=== PATIENT | male | born 1975 | race Caucasian/White ===

== ENCOUNTER 2019-10-26 10:12 | Emergency (ER) | payer SELFPAY ==
[2019-10-26 10:12] VITALS: BP 159/110; PULSE 82; RESP 20; TEMP 36.9; O2SAT 92; BMI 45.6
--- NOTE | 2019-10-26 10:16 | CT_ITS ---
WS: [id number] CT ABDOMEN PELVIS TECHNIQUE: Noncontrast CT of the abdomen and pelvis with coronal and sagittal reformatted images. CLINICAL INFORMATION: flank pain COMPARISON: None. DLP: 2238.[address] scans at [facility] use at least one of these dose optimization techniques: automat ed exposure control; mA and/or kV adjustment per patient size (includes targeted exams where dose is matched to clinical indication); or iterative reconstruction. FINDINGS: Noncontrast liver is normal. Normal cholecystectomy clips. Noncontrast spleen is normal. Mild fatty a trophy of the pancreas. Normal GE junction. Slight atelectasis in the lung bases. Adrenal glands are normal. No hydronephrosis. No obstructing renal or ureteral calculi. Normal caliber abdominal aorta. Mild aortic calcification. Normal sigmoid colon. Normal appendix. No evidence of small or large bowel obstruction. No free fluid in the pelvis. Disc space narrowing worse L5-S1. CT/CT kidney stone 12680 IMPRESSION: 1. No obstructing renal or ureteral calculi. No hydronephrosis. 2. Prior cholecystectomy. 3. No evidence of small or large bowel obstruction. Normal sigmoid colon. 4. No free fluid in the pelvis. 5. No acute abdominal or pelvic findings.
--- NOTE | 2019-10-26 10:17 | ED_ITS ---
HPI - Abdominal Pain General: Chief Complaint: Urogenital-Male Stated Complaint: flank pain Time Seen by Provider: 10/26/19 10:16 Source: patient Mode of arrival: ambulatory Limitations: no limitations History of Present Illness: HPI narrative: Patient comes in for persistent flank pain to the left side. Patient was diagnosed with a kidney stone yesterday at [facility] emergency room. Patient was prescribed medications but had not picked them up and the pain got worse today. Patient appears in moderate pain. Patient appears well. MD elicited complaint: flank pain Review of Systems General: Reports: 10 or more systems reviewed and unremarkable except in HPI and below GI: Reports: abdominal pain (flank pain) PFSH ED 2 PFSH: Social History Smoking and tobacco status: current every day smoker Physical Exam Const: COMMON NORMALS: no apparent distress and oriented x3 GENERAL APPEARANCE: cooperative HENMT: COMMON NORMALS: normocephalic, TM's normal bilaterally and external nose normal HEAD & SCALP: normal to inspection and normocephalic NOSE: external nose normal TYMPANIC MEMBRANE: TM's normal bilaterally MOUTH: oral and palatal mucosa normal THROAT: posterior oropharynx normal Eye: GENERAL EYE: normal appearance of both eyes Neck/C-Spine: COMMON NORMALS: full ROM Lymph: LYMPHATIC: no lymphadenopathy noted Chest: COMMONS NORMALS: inspection of chest normal Resp: COMMON NORMALS: normal respiratory effort EFFORT & INSPECTION: Yes able to speak in complete sentences Cardio: COMMON NORMALS: regular rate and regular rhythm RATE: regular rate RHYTHM: regular rhythm GI: COMMON NORMALS: non-tender : BLADDER/KIDNEY EXAM: Yes CVA tenderness Back/Pelvis: COMMON NORMALS: thoracic and lumbar spine normal to inspection GENERAL BACK: Yes CVA tenderness Extremity: COMMON NORMALS: normal to inspection Neuro: COMMON NORMALS: oriented x3 and moves all extremities Psych: COMMON NORMALS: mental status grossly normal and cooperative Skin: COMMON NORMALS: no rashes or lesions noted GENERAL SKIN EXAM: no ra shes or lesions noted Course Vital Signs: Vital signs: Vital Signs Temperature 98.4 F 10/26/19 10:12 Pulse Rate 70 10/26/19 12:24 Respiratory Rate 20 H 10/26/19 10:12 Blood Pressure 141/73 10/26/19 12:24 Pulse Oximetry 95 10/26/19 12:24 MDM - Abdominal Pain MDM Narrative: Medical decision making narrative: Patient comes in with left f lank pain radiating into his abdomen. Exam patient has some flank tenderness on percussion on the left side. Vital signs are normal except for some mild elevation in blood pressure. Differential diagnosis includes lumbar strain, renal colic, pyelonephritis. CT scan of the abdomen pelvis noted no hydronephrosis or obstructing renal calculi. Urinalysis showed jose blood and trace his white blood cells. Laboratory values were normal. Suspect patient probably had a renal stone that he passed. Patient at first had significant pain but it did improve prior to discharge. Recommended patient continue with medications as directed and follow-up with urology for further evaluation and treatment. Encourage plenty of fluids and return to the ER for high fever or worsening symptoms. Patient reported understanding. Lab Data: Labs: Lab Results 10/26/19 10/26/19 10/26/19 Range/Units 11:29 11:29 11:29 WBC 7.0 (4.0-10.0) 10^3/ uL RBC 5.13 (4.1-5.3) 10^6/u L Hgb 16.6 (11.7-16.6) g/dL Hct 50.0 (42.0-52.0) % MCV 97.5 H (80-94) fL MCH 32.4 (28.0-34.0) pg MCHC 33.2 (30.0-36.0) g/dL RDW 12.3 (12.1-15.1) % Plt Count 220 (130-400) 10^3/c mm MPV 9.9 (7.4-10.4) fL Neut % (Auto) 68.0 % Lymph % (Auto) 23.9 % Duchesne % (Auto) 5.1 % Eos % (Auto) 2.0 % Baso % (Auto) 0.7 % Neut # (Auto) 4.8 (1.8-7.7) 10^3/u L Lymph # (Auto) 1.7 (0.8-4.8) 10^3/u L Duchesne # (Auto) 0.4 (0.2-0.9) 10^3/u L Eos # (Auto) 0.1 (0.0-0.8) 10^3/u L Baso # (Auto) 0.1 (0.0-0.1) 10^3/u L Nucleated RBC % (a uto) 0 % Nucleated RBCs # 0.0 /100WBC D-Dimer (0-0.59) ug/mIFE U Sodium 139 (136-145) mmol/L Potassium 4.4 (3.5-5.1) mmol/L Chloride 101 (98-107) mmol/L Carbon Dioxide 28 (22-29) mmol/L Anion Gap 14.4 (5-19) BUN 12 (6-20) mg/dL Creatinine 1.0 (0.7-1.2) mg/dL GFR Calculation 81.2 L (90-130) mL/min Glucose 91 (65-115) mg/dL Calculated Osmolal ity 284 L (285-295) mOsm/k g Calcium 9.9 (8.5-10.5) mg/dL Lipase 24 (13-60) U/L Urine Color (Yellow) Urine Appearance (CLEAR) Urine pH (5-7) Ur Specific Gravit y (1.005-1.030) Urine Protein (Negative) Urine Glucose (UA) (Normal) Urine Ketones (Negative) Urine Blood (Negative) Urine Nitrate (Negative) Urine Bilirubin (NEGATIVE) Urine Urobilinogen (Negative) mg/dL Ur Leukocyte Estefani ase (Negative) Urine RBC (0-2) /hpf Urine WBC (0-5) /hpf Ur Squamous Epith Cells (0-5) Urine Bacteria (NONE) 10/26/19 10/26/19 Range/Units 11:29 12:22 WBC (4.0-10.0) 10^3/ uL RBC (4.1-5.3) 10^6/u L Hgb (11.7-16.6) g/dL Hct (42.0-52.0) % MCV (80-94) fL MCH (28.0-34.0) pg MCHC (30.0-36.0) g/dL RDW (12.1-15.1) % Plt Count (130-400) 10^3/c mm MPV (7.4-10.4) fL Neut % (Auto) % Lymph % (Auto) % Duchesne % (Auto) % Eos % (Auto) % Baso % (Auto) % Neut # (Auto) (1.8-7.7) 10^3/u L Lymph # (Auto) (0.8-4.8) 10^3/u L Duchesne # (Auto) (0.2-0.9) 10^3/u L Eos # (Auto) (0.0-0.8) 10^3/u L Baso # (Auto) (0.0-0.1) 10^3/u L Nucleated RBC % (a uto) % Nucleated RBCs # /100WBC D-Dimer 0.37 (0-0.59) ug/mIFE U Sodium (136-145) mmol/L Potassium (3.5-5.1) mmol/L Chloride (98-107) mmol/L Carbon Dioxide (22-29) mmol/L Anion Gap (5-19) BUN (6-20) mg/dL Creatinine (0.7-1.2) mg/dL GFR Calculation (90-130) mL/min Glucose (65-115) mg/dL Calculated Osmolal ity (285-295) mOsm/k g Calcium (8.5-10.5) mg/dL Lipase (13-60) U/L Urine Color Toma (Yellow) Urine Appearance Clear (CLEAR) Urine pH 5 (5-7) Ur Specific Gravit y 1.025 (1.005-1.030) Urine Protein 1+ H (Negative) Urine Glucose (UA) Norm (Normal) Urine Ketones 1+ H (Negative) Urine Blood 3+ H (Negative) Urine Nitrate Negative (Negative) Urine Bilirubin Neg (NEGATIVE) Urine Urobilinogen Norm (Negative) mg/dL Ur Leukocyte Estefani ase Negative (Negative) Urine RBC 15-25 H (0-2) /hpf Urine WBC 0-4 H (0-5) /hpf Ur Squamous Epith Cells 5-10 H (0-5) Urine Bacteria 2+ H (NONE) Discharge Plan Discharge Patient Disposition: Home, Self-Care Clinical Impression: Renal colic on left side Condition: Stable Prescriptions: New hydrocodone-acetaminophen 5-325 mg tablet 1 tab PO Q6H PRN (Reason: pain (scale score 7-10)) Qty: 10 RF: 0 Bactrim DS 800-160 mg tablet 1 tab PO BID 10 Days Qty: 20 RF: 0 Discharge Orders: Discharge Order (Routine); Ordered 10/26/19 Ordered By: Garrett J Mahajan Discharge Diet: Usual diet Discharge Activity: Increase activity as tolerated Patient Instructions: Renal Colic (ED) Activity Restrictions/Additional Instructions: Drink plenty of water. Take medications with 1 whole glass of water. Eat as tolerated. Follow-up with primary care in 1 week. Return to the ER for high fever or worsening symptoms. Coding Level of Care Code ED Plant [employer] for Kimmie Fwtoño Exam Comprehensive
[2019-10-26 10:26] VITALS: O2SAT 95
[2019-10-26] MEDS: ketorolac 30 mg/mL INJ 15 MG IVP (10:59)
[2019-10-26] MEDS: morphine 4 mg/mL SDV 1 mL IVP (11:00)
[2019-10-26] MEDS: ondansetron 2 mg/ML SDV 2 mL 4 MG IVP (11:00)
[2019-10-26 11:41] LABS: Basophils # 0.1 10^3/uL (0.0-0.1); Basophils % 0.7 %; Eosinophils # 0.1 10^3/uL (0.0-0.8); Hemoglobin 16.6 g/dL (11.7-16.6); Lymphocytes # 1.7 10^3/uL (0.8-4.8); Lymphocytes % 23.9 %; Mean Corpuscular HGB Conc 33.2 g/dL (30.0-36.0); Mean Corpuscular Hemoglobin 32.4 pg (28.0-34.0); Mean Corpuscular Volume 97.5 fL (80-94); Mean Platelet Volume 9.9 fL (7.4-10.4); Monocytes # 0.4 10^3/uL (0.2-0.9); Monocytes % 5.1 %; Neutrophils # 4.8 10^3/uL (1.8-7.7); Nucleated Red Blood Cells % 0 %; Platelet Count 220 10^3/cmm (130-400); Red Blood Count 5.13 10^6/uL (4.1-5.3); Red Cell Distribution Width 12.3 % (12.1-15.1)
[2019-10-26 11:54] LABS: Anion Gap 14.4 (5-19); Blood Urea Nitrogen 12 mg/dL (6-20); Calcium 9.9 mg/dL (8.5-10.5); Carbon Dioxide 28 mmol/L (22-29); Chloride 101 mmol/L (98-107); Glomerular Filtration Rate 81.2 mL/min (90-130); Glucose 91 mg/dL (65-115); Osmolality Calculated 284 mOsm/kg (285-295); Potassium 4.4 mmol/L (3.5-5.1); Sodium 139 mmol/L (136-145)
[2019-10-26 12:19] LABS: Lipase 24 U/L (13-60)
[2019-10-26] MEDS: HYDROcodone-acetaminophen 10-325 mg Tablet 1 TAB PO (12:23)
[2019-10-26 12:24] VITALS: BP 141/73; PULSE 70; O2SAT 95
[2019-10-26 13:00] LABS: D Dimer 0.37 ug/mIFEU (0-0.59)
[2019-10-26 13:09] LABS: Glucose Urine UA Norm (Normal); Ketones Urine 1+ (Negative); Protein Urine 1+ (Negative); Specific Gravity, Urine 1.025 (1.005-1.030); Urine Appearance Clear (CLEAR); Urine Color Amber (Yellow); pH Urine 5 (5-7)
[2019-10-26 13:10] LABS: Add Urine Microscopic? YES; Bilirubin Urine Neg (NEGATIVE); Blood Urine 3+ (Negative); Leukocyte Esterase Urine Negative (Negative); Nitrate Urine Negative (Negative); Urobilinogen Urine Norm (Negative)
[2019-10-26 13:11] LABS: Add Urine Culture? Yes; Bacteria Urine 2+; RBC Urine 15-25 /hpf (0-2); WBC Urine 0-4 /hpf (0-5)
[2019-10-26 13:52] VITALS: BP 158/100; PULSE 73; RESP 12; O2SAT 98
--- NOTE | 2019-10-29 10:04 | DCPLANNER ---
late entry - pillowcase folder was asked to schedule a follow up appointment for patient with Dr. Yoder. 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
== END 2019-10-26 13:53 | disposition home or self-care (01) ==
PROVIDERS: Emergency Provider Nurse Practitioner Family
DX: N23 Unspecified renal colic (principal); F17.210 Nicotine dependence, cigarettes, uncomplicated
CPT/HCPCS: 12345; 36415; 74176; 80048; 81001; 83690; 85025; 85378; 87086; 96374; 96375; 99283; 99284; J1885; J2270; J2405